=== PATIENT | male | born 1980 | race Caucasian/White ===

== ENCOUNTER 2018-12-15 10:57 | Emergency (ER) | payer SELFPAY ==
[2018-12-15 11:14] VITALS: BP 129/86
--- NOTE | 2018-12-15 11:52 | UC ---
UC General HPI - HPI Summary HPI Summary: 1. 2 WEEK HX OF BODY ACHES AND GENERALIZED JOINT PAINS. IMPROVES WITH MOVEMENT AND WORSE WITH REST. NO ASSOCIATED FEVER JOINT SWELLING OR CURRENT/RECENT ILLNESS. NO TICK BITES/V/D. HX OA IN BACK THAT FEELS SIMILAR. NO SELF TX. 2. 1 MONTH HX OF UPPER ABDOMINAL CRAMPING POST MEALS. HX REFLUX. ADMITS TO SOME ACID IN THROAT. NO ASSOCIATED N/V/D. RARELY USES ALCOHOL. NO CHANGE IF MEAL FATTY OR BLAND. NO BLACK OR TARRY STOOL. TX WITH OCCASIONAL TUMS. 3. SPOT ON BACK NOTICED IT 2 DAYS AGO. - History of Current Complaint Chief Complaint: UCGI Stated Complaint: BODY ACHES, UPSET STOMACH Time Seen by Provider: 12/15/18 11:33 Hx Obtained From: Patient Pain Intensity: 1 - Allergy/Home Medications Allergies/Adverse Reactions: Allergies Allergy/AdvReac Type Severity Reaction Status Date / Time No Known Allergies Allergy Verified 12/15/18 11:09 PMH/Surg Hx/FS Hx/Imm Hx - Additional Past Medical History Additional PMH: OA GI/ History: Gastroesophageal Reflux - Surgical History Surgical History: None - Social History Alcohol Use: Rare Alcohol Amount: 1/month Substance Use Type: None Smoking Status (MU): Never Smoked Tobacco Type: Smokeless Tobacco Review of Systems All Other Systems Reviewed And Are Negative: Yes Constitutional: Negative: Fever Skin: Positive: Rash Eyes: Positive: Negative ENT: Positive: Negative Respiratory: Positive: Negative Cardiovascular: Positive: Negative Gastrointestinal: Negative: Abdominal Pain Genitourinary: Positive: Negative Motor: Positive: Negative Neurovascular: Positive: Negative Musculoskeletal: Positive: Arthralgia Neurological: Positive: Negative Psychological: Positive: Negative Is Patient Immunocompromised?: No Physical Exam Triage Information Reviewed: Yes Appearance: Well-Appearing Vital Signs: Initial Vital Signs Temp 96.9 F 12/15/18 11:09 Pulse 88 12/15/18 11:09 Resp 16 12/15/18 11:09 BP 129/86 12/15/18 11:09 Pulse Ox 98 12/15/18 11:09 Vital Signs Reviewed: Yes Eyes: Positive: Conjunctiva Clear ENT: Positive: Pharynx normal, TMs normal. Negative: Nasal congestion, Nasal drainage Neck: Positive: Supple, Nontender, No Lymphadenopathy Respiratory: Positive: Lungs clear, Normal breath sounds Cardiovascular: Positive: RRR, No Murmur Abdomen Description: Positive: Nontender, No Organomegaly, Soft. Negative: Distended, Guarding Bowel Sounds: Positive: Present Musculoskeletal: Positive: ROM Intact, No Edema Neurological: Positive: Alert Psychological: Positive: Age Appropriate Behavior Skin Exam: Normal Skin: Positive: Rashes - 1CM SCALEY LESION ON BACK. Course/Dx - Course Course Of Treatment: 1. WILL TX WITH NSAID AND REFER TO PCP. NO CONCERN FOR SEPTIC JOINT. NO HX TICK BITE THUS DOUBT LYME DZ. 2. NON TOXIC AND NO ACUTE ABDOMEN. WILL TX PPI AND REFER TO PCP FOR ONGOING EVALUATION. 3. POSSIBLE PRE CA OR SKIN CA CHANGE ON BACK WILL REFER TO DERMATOLOGY. NO PCP BUT PT WOULD LIKE DR ALVARADO THUS REFERRED THERE. REFER TO DERMATOLOGY. PT ADVISED I AM NO SUBSTITUTE TO BOTH FOLLOW UP FOR ONGOING EVALUATION AND TX/DEFINITIVE CARE. - Diagnoses Provider Diagnosis: Arthralgia, Dyspepsia, Skin lesion of back Discharge - Sign-Out/Discharge Documenting (check all that apply): Patient Departure All imaging exams completed and their final reports reviewed: No Studies - Discharge Plan Condition: Stable Disposition: HOME Prescriptions: Naproxen TAB* [Naprosyn 375 mg TAB*] 375 mg PO BID PRN 7 Days #14 tab PRN Reason: Pain - Arthritis Omeprazole CAP (NF) [Prilosec CAP* 20 MG] 20 mg PO DAILY #30 cap. Patient Education Materials: Squamous Cell Carcinoma (DC), Indigestion (ED), Arthralgia (ED) Referrals: Rossi Calles [Medical Doctor] - As Soon As Possible Dhaval Alvarado MD [Medical Doctor] - As Soon As Possible Additional Instructions: FOLLOW UP DR CALLES FOR SKIN LESION. FOLLOW UP DR ALVARADO FOR JOINT PAIN AND ABDOMINAL DISCOMFORT - Billing Disposition and Condition Condition: STABLE Disposition: Home - Attestation Statements Provider Attestation: I was available for consult. This patient was seen by the SUSAN. The patient was not presented to, seen by, or examined by me. -Gavino
== END 2018-12-15 12:16 | disposition home or self-care (01) ==
LOC: UCCORT 10:57
DX: M25.50 Pain in unspecified joint (principal); R10.13 Epigastric pain; L98.8 Other specified disorders of the skin and subcutaneous tissue
CPT/HCPCS: 99202; G0463